=== PATIENT | male | born 1985 | race Caucasian/White ===

== ENCOUNTER 2016-12-26 18:34 | Emergency (ER) | payer SELFPAY ==
[~2016-12-26] VITALS: Ht 167.6 cm; Wt 113.6 kg
[2016-12-26 18:35] VITALS: BP 124/64
== END 2016-12-26 21:30 | disposition left against medical advice (07) ==
LOC: EMS 18:38
DX: M54.9 Dorsalgia, unspecified (principal); Z53.21 Procedure and treatment not carried out due to patient leaving prior to being seen by health care provider

== ENCOUNTER 2023-11-04 10:01 | Emergency (ER) | payer OTHER ==
[~2023-11-04] VITALS: Ht 170.2 cm; Wt 94.5 kg
[2023-11-04 10:34] VITALS: TEMP 98.2
[2023-11-04] MEDS ORDERED: PENICILLIN V POTASSIUM 500 MG TABLET PO ONE (11:45)
[2023-11-04] MEDS ORDERED: IBUPROFEN 600 MG TABLET PO ONE (11:45)
[2023-11-04] MEDS ORDERED: PENI500T2 PO (12:12)
[2023-11-04] MEDS ORDERED: IBUP-1492 PO (12:12)
[2023-11-04 12:29] VITALS: BP 133/74; PULSE 78; RESP 18
== END 2023-11-04 12:36 | disposition home or self-care (01) ==
LOC: EMS 10:01
DX: K08.89 Other specified disorders of teeth and supporting structures (principal)
CPT/HCPCS: 99283